=== PATIENT | male | born 1995 | race Caucasian/White ===

== ENCOUNTER 2023-08-26 22:39 | Emergency (ER) | payer BC ==
[~2023-08-26] VITALS: Ht 185.4 cm; Wt 99.8 kg
[~2023-08-26 22:39] MED LIST: CETI10 PO; FLUT.05NI; GUAI600T33 PO; Ultram50 MG PO
[2023-08-26 23:04] VITALS: BP 157/107
[2023-08-26] MEDS ORDERED: AMOCLA875 PO (23:11)
== END 2023-08-26 23:29 | disposition home or self-care (01) ==
LOC: ER 22:39
DX: K04.7 Periapical abscess without sinus (principal); S02.5XXA Fracture of tooth (traumatic), initial encounter for closed fracture; X58.XXXA Exposure to other specified factors, initial encounter
CPT/HCPCS: A9270; J1100